=== PATIENT | female | born 1945 | race Caucasian/White ===

== ENCOUNTER 2016-08-01 10:03 | Inpatient (IN) | payer MEDICARE ==
[~2016-08-01] VITALS: Ht 160 cm; Wt 79.4 kg
[2016-08-01 11:47] LABS: HEMOGLOBIN 13.8 gm/dl (12.3-15.3); RED BLOOD COUNT 4.74 M/UL (4.00-5.10); WHITE BLOOD COUNT 8.5 K/UL (4.5-11.0)
[2016-08-01 12:10] LABS: BUN/CREATININE RATIO 17 (0-10)
[2016-08-01] MEDS ORDERED: ULORIC 40 MG TA40 MG PO (20:23)
[2016-08-01] MEDS ORDERED: LASIX20 MG PO (20:23)
[2016-08-01] MEDS ORDERED: K-DUR TAB 20 M20 MEQ PO (20:24)
[2016-08-01] MEDS ORDERED: NEXIUM40 MG PO (20:25)
[2016-08-02 04:41] LABS: HEMOGLOBIN 13.5 gm/dl (12.3-15.3); RED BLOOD COUNT 4.64 M/UL (4.00-5.10)
[2016-08-02 04:42] LABS: BUN/CREATININE RATIO 19 (0-10)
[2016-08-03] MEDS ORDERED: OMNICEF 300 MG300 MG PO (16:23)
[2016-08-03] MEDS ORDERED: LIPITOR TAB 2020 MG PO (16:23)
[2016-08-03] MEDS ORDERED: ASPIR-LOW81 MG PO (16:23)
== END 2016-08-03 16:47 | disposition home or self-care (01) | DRG 65 ==
LOC: ER1 10:03 → ZEROF 15:50 → MED SURG 4 15:50
PROVIDERS: Physician Assistant Medical; Specialist/Technologist Athletic Trainer; ADMIT Internal Medicine
DX: I63.9 Cerebral infarction, unspecified (principal); N39.0 Urinary tract infection, site not specified; E78.5 Hyperlipidemia, unspecified; R03.0 Elevated blood-pressure reading, without diagnosis of hypertension; R51 Headache; B96.89 Other specified bacterial agents as the cause of diseases classified elsewhere; G89.29 Other chronic pain; M47.9 Spondylosis, unspecified; H55.00 Unspecified nystagmus; K21.9 Gastro-esophageal reflux disease without esophagitis; Z88.2 Allergy status to sulfonamides; Z88.5 Allergy status to narcotic agent; Z79.899 Other long term (current) drug therapy; Z87.891 Personal history of nicotine dependence; Z86.73 Personal history of transient ischemic attack (TIA), and cerebral infarction without residual deficits; Z82.3 Family history of stroke
CPT/HCPCS: ECHO; 36415; 70450; 70496; 70498; 70551; 80048; 80053; 80061; 81001; 83735; 85025; 85610; 85730; 87077; 87086; 87186; 93306; 93880; 99284; J0696; J1650; J7050; Q9963